=== PATIENT | male | born 1960 | race Caucasian/White ===

== ENCOUNTER 2021-07-06 18:58 | Inpatient (IN) | payer MEDICARE, OTHER ==
[~2021-07-06] VITALS: Ht 187.9 cm; Wt 91.5 kg
[2021-07-06 20:50] VITALS: BP 87/61
[2021-07-06] MEDS ORDERED: ONDANSETRON 4 MG (ZOFRAN) ORAL DISSOLVE TAB PO PRN (21:30)
[2021-07-06] MEDS ORDERED: diphenhydrAMINE 25 MG TAB (BENADRYL) PO PRN (21:30)
[2021-07-06] MEDS ORDERED: MELATONIN 3 MG TABLET PO PRN (21:30)
[2021-07-06] MEDS ORDERED: ONDANSETRON 4 MG/2 ML (SDV) Z0FRAN IV PRN (21:30)
[2021-07-06] MEDS ORDERED: ANTACID SUSP 30 ML UDC (MYLANTA) PO PRN (21:30)
[2021-07-06] MEDS ORDERED: morphine INJ 4 MG/ML 1 ML (VIAL/SYRINGE) IVP PRN (21:30)
[2021-07-06] MEDS ORDERED: ACETAMINOPHEN 325 MG TABLET PO PRN (21:30)
[2021-07-06] MEDS ORDERED: NS IV 1000 ML 1,000 ML ONE (21:41)
[2021-07-06] MEDS: NS IV 1000 ML 1,000 ML IV SCH (22:22)
--- NOTE | 2021-07-06 22:59 | Diagnostic Imaging Report ---
INDICATION: NG tube placement. FINDINGS: The catheter is along the greater curvature of the proximal gastric body. There is some air distention of the colon in the left upper quadrant. IMPRESSION: The OG catheter is in good position within the stomach. Dictated by: Dictated on workstation # [id number]
[2021-07-06 23:27] VITALS: BP 121/82
[2021-07-07 03:20] VITALS: BP 141/88
[2021-07-07 06:08] LABS: BASOPHILS % (AUTO) 0 % (0-10); EOSINOPHILS % (AUTO) 0 % (0-10); HEMATOCRIT 41 % (40-54); HEMOGLOBIN 13.7 g/dL (13.3-17.7); LYMPHOCYTES # (AUTO) 1.4 10^3/uL (1.0-4.0); LYMPHOCYTES % (AUTO) 14 % (12-44); MEAN CORPUSCULAR HEMOGLOBIN 30 pg (25-34); MEAN CORPUSCULAR HGB CONC 33 g/dL (32-36); MEAN CORPUSCULAR VOLUME 90 fL (80-99); MONOCYTES # (AUTO) 0.7 10^3/uL (0.0-1.0); MONOCYTES % (AUTO) 7 % (0-12); NEUTROPHILS # (AUTO) 7.9 10^3/uL (1.8-7.8); NEUTROPHILS % (AUTO) 78 % (42-75); PLATELET COUNT 391 10^3/uL (130-400); WHITE BLOOD COUNT 10.2 10^3/uL (4.3-11.0)
[2021-07-07] MEDS: NS IV 1000 ML 1,000 ML IV SCH ×3 (06:21→21:02)
[2021-07-07 06:22] LABS: POTASSIUM 3.8 MMOL/L (3.6-5.0)
[2021-07-07 06:23] LABS: CALCIUM 8.5 MG/DL (8.5-10.1)
[2021-07-07 06:27] LABS: CREATININE SERUM 0.69 MG/DL (0.60-1.30); PHOSPHORUS 2.9 MG/DL (2.3-4.7)
[2021-07-07 06:29] LABS: MAGNESIUM 2.1 MG/DL (1.6-2.4)
[2021-07-07 07:45] VITALS: BP 126/69
[2021-07-07] MEDS: MAGNESIUM 1 GM/100 ML IVPB 100 ML IV SCH (08:10)
[2021-07-07] MEDS: POTASSIUM CL 10MEQ/50ML IVPB 50 ML IV SCH (08:10)
[2021-07-07] MEDS: KCL 20 MEQ TAB (K-DUR) PO SCH (08:10)
[2021-07-07] MEDS: ENOXAPARIN 40 MG/0.4 ML (LOVENOX) SYR SC SCH (09:52)
[2021-07-07 11:50] VITALS: BP 130/85
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
--- NOTE | 2021-07-07 13:31 | History & Physical-Hospitalist ---
RENELUCÍAMAXI A MED STUDENT 07/07/21 1331: History of Present Illness HPI/Chief Complaint Pt was admitted from [facility] yesterday for bloating, reflux and constipation for the last three days. Pt has hx of quadriplegia and pressure ulcers. Pt reports he started having bloating and reflux three days and has not had a BM since Friday. Pt reports he normally has a BM every other day. Pt states he has had a pressure ulcer and has been lying in bed for the last week instead of being up in his wheelchair. Pt reports his abdominal pain is in the LLQ and wo rsens when he lies on his right side and is better when he is on his back. The pain is sharp and constant. Pt lives at home with his parents who are his caregivers. Pt denies fever, chills, recent weight loss or gain, SOA, cough, chest pain, palpitations and N/V/D. Pt has suprapubic catheter in place. Source: patient Exam Limitations: no limitations Date Seen 07/07/21 Time Seen by a Provider: 08:50 Attending Physician Alana Reynolds MD PCP Referring Physician Date of Admission Jul 06, 2021 at 20:40 Home Medications & Allergies Home Medications Reviewed patient Home Medication Reconciliation performed by pharmacy medication reconciliations phlebotomy technician and/or nursing. Patients Allergies have been reviewed. Allergies Allergies Coded Allergies Sulfa (Sulfonamide Antibiotics) (Verified Allergy, Unknown, 07/07/21) povidone-iodine (Verified Allergy, Unknown, 07/07/21) Past Iryqbix-Bdslyk-Rkyeex Hx Patient Social History Tobacco Use?: No Smoking Status: Never a Smoker Use of E-Cig and/or Vaping dev: No Substance use?: No Alcohol Use?: No Pt feels they are or have been: No Immunizations Up To Date Tetanus Booster (TDap): Unknown Current Status Advance Directives: No Advance Directive Location: Unable to obtain copy Communicates: Verbally Primary Language: Niuean Preferred Spoken Language: Niuean Is interpretation needed?: No Sensory deficits: Other Additional sensory deficits: quadriplegic Review of Systems Constitutional: No chills, No fever EENTM: no symptoms reported Respiratory: No cough, No short of breath Cardiovascular: No chest pain, No palpitations Gastrointestinal: abdominal pain (LLQ), constipation; No diarrhea, No nausea, No vomiting Genitourinary: other (suprapubic catheter) Musculoskeletal: no symptoms reported Skin: no symptoms reported Psychiatric/Neurological: No Symptoms Reported Physical Exam Physical Exam Vital Signs Vital Signs - First Documented 07/06/21 20:50 Temp 36.3 Pulse 82 Resp 16 B/P (MAP) 87/61 (70) Pulse Ox 96 O2 Delivery Room Air Capillary Refill : Height, Weight, BMI Height: '" Weight: lbs. oz. kg; 25.91 BMI Method: General Appearance: No Apparent Distress, WD/WN HEENT: PERRL/EOMI Respiratory: Chest Non Tender, Lungs Clear, Normal Breath Sounds Cardiovascular: Regular Rate, Rhythm, No Murmur Gastrointestinal: Soft, Other (Pressure in LLQ) Extremity: Normal Capillary Refill, No Pedal Edema Neurologic/Psychiatric: Alert, Oriented x3, Depressed Affect Skin: Normal Color, Warm/Dry Results Results/Procedures Labs Laboratory Tests 07/07/21 05:25 Patient resulted labs reviewed. Assessment/Plan Admission Diagnosis Small bowel obstruction Reason for Inpatient Admission: Small bowel obstruction Assessment and Plan SBO Hyponatremia Quadriplegia SBO -NPO, NG tube for decompression, IV fluids and pain medication prn -Surgery consulted Hyponatremia -NaCl at 125mls/hr Quadriplegia with pressure ulcer -Will consult wound care -Frequent turns as tolerated by patient Diet: NPO DVT prophylaxis: Lovenox Disposition: Likely to stay another 24-48 hours to monitor for bowel movement. ALANA REYNOLDS MD 07/07/21 1936: History of Present Illness Time Seen by a Provider: 12:20 Past Kbkdinu-Ltlyfq-Jtgvnv Hx Past Medical History Spinal Cord Injury Family Medical History No Pertinent Family Hx Physical Exam Physical Exam General Appearance: No Apparent Distress, WD/WN HEENT: PERRL/EOMI, Pharynx Normal Neck: Normal Inspection, Supple Respiratory: Lungs Clear, Normal Breath Sounds, No Respiratory Distress Cardiovascular: Regular Rate, Rhythm, No Murmur Gastrointestinal: Soft, Abnormal Bowel Sounds (high pitched tinkling bowel sounds) Extremity: Normal Inspection, No Pedal Edema Neurologic/Psychiatric: Alert, Oriented x3, Normal Mood/Affect Skin: Normal Color, Warm/Dry Results Results/Procedures Imaging: Reviewed Imaging Report Assessment/Plan Admission Diagnosis Admission Status: Inpatient Order (span 2 midnights) Reason for Inpatient Admission: Treatment of small bowel obstruction Assessment and Plan Admitted with small bowel obstruction. Surgery following. NG tube in place, IV fluids, pain regimen, NPO. Monitor closely. Diagnosis/Problems Diagnosis/Problems (1) Small bowel obstruction Status: Acute Supervisory-Addendum Brief Verification & Attestation Participated in pt care: history, MDM, physical Personally performed: exam, history, MDM, supervision of care Care discussed with: Medical Student Procedures: n/a Results interpretation: Verified all documentation A medical student performed and documented this service in my presence. I reviewed and verified all information documented by the medical student and made modifications to such information, when appropriate. I personally performed the physical exam and medical decision making. MAXI NOVAK MED STUDENT Jul 07, 2021 13:31 ALANA REYNOLDS MD Jul 07, 2021 19:36
[2021-07-07] MEDS ORDERED: BISACODYL 10 MG SUPP (DULCOLAX) PR ONE (13:45)
[2021-07-07 16:00] VITALS: BP 129/70
[2021-07-07] MEDS ORDERED: OXYB5TAB13 PO (18:04)
[2021-07-07] MEDS ORDERED: BACL10TA PO (18:04)
[2021-07-07] MEDS ORDERED: DIAZ10TA3 PO (18:04)
[2021-07-07 20:00] VITALS: BP 125/85
[2021-07-07] MEDS: LORazepam INJ 2 MG/ML (ATIVAN) VIAL IVP SCH (21:07)
[2021-07-08] VITALS (7 sets, daily range): BP systolic 127–185; BP diastolic 76–103
[2021-07-08] MEDS: NS IV 1000 ML 1,000 ML IV SCH ×3 (05:02→21:22)
[2021-07-08 06:52] LABS: BASOPHILS % (AUTO) 1 % (0-10); EOSINOPHILS # (AUTO) 0.1 10^3/uL (0.0-0.3); EOSINOPHILS % (AUTO) 1 % (0-10); HEMATOCRIT 40 % (40-54); HEMOGLOBIN 12.8 g/dL (13.3-17.7); LYMPHOCYTES # (AUTO) 1.2 10^3/uL (1.0-4.0); LYMPHOCYTES % (AUTO) 15 % (12-44); MEAN CORPUSCULAR HEMOGLOBIN 29 pg (25-34); MEAN CORPUSCULAR HGB CONC 32 g/dL (32-36); MEAN CORPUSCULAR VOLUME 91 fL (80-99); MEAN PLATELET VOLUME 9.7 fL (9.0-12.2); MONOCYTES # (AUTO) 0.8 10^3/uL (0.0-1.0); MONOCYTES % (AUTO) 10 % (0-12); NEUTROPHILS % (AUTO) 73 % (42-75); PLATELET COUNT 450 10^3/uL (130-400); WHITE BLOOD COUNT 8.2 10^3/uL (4.3-11.0)
[2021-07-08 07:08] LABS: POTASSIUM 3.5 MMOL/L (3.6-5.0)
[2021-07-08 07:09] LABS: CALCIUM 8.3 MG/DL (8.5-10.1)
[2021-07-08 07:13] LABS: CREATININE SERUM 0.73 MG/DL (0.60-1.30); PHOSPHORUS 2.2 MG/DL (2.3-4.7)
[2021-07-08] MEDS: KCL 20 MEQ TAB (K-DUR) PO SCH (07:15)
[2021-07-08] MEDS: POTASSIUM CL 10MEQ/50ML IVPB 50 ML IV SCH ×3 (07:15→11:50)
[2021-07-08 07:16] LABS: MAGNESIUM 2.2 MG/DL (1.6-2.4)
[2021-07-08] MEDS: MAGNESIUM 1 GM/100 ML IVPB 100 ML IV SCH (07:16)
[2021-07-08] MEDS ORDERED: hydrALAZINE (APESOLINE) 20 MG/ML VIAL IV PRN (08:45)
[2021-07-08] MEDS ORDERED: BISACODYL 10 MG SUPP (DULCOLAX) PR SCH (09:00)
--- NOTE | 2021-07-08 09:06 | Progress Note ---
Subjective Date Seen by a Provider: Jul 08, 2021 Time Seen by a Provider: 10:30 Subjective/Events-last exam Patient seen with Dr. Shields. Patient reports just had a BM. Denies any abdominal pain, no N/V. Objective Exam Vital Signs Date Time Temp Pulse Resp B/P (MAP) Pulse Ox O2 Delivery O2 Flow Rate FiO2 07/08/21 07:40 36.8 104 18 180/103 (128) 97 Room Air 07/08/21 03:50 36.2 86 17 134/83 (100) 95 Room Air 07/08/21 00:00 36.6 84 17 136/80 (98) 97 Room Air 07/07/21 20:22 Room Air 07/07/21 20:00 35.9 94 20 125/85 (98) 97 Room Air 07/07/21 16:00 36.1 104 20 129/70 (89) 97 Room Air 07/07/21 11:50 36.6 86 18 130/85 (100) 96 Room Air I & O 07/08/21 06:59 Intake Total 0 ml Output Total 2600 ml Balance -2600 ml Capillary Refill : General Appearance: No Apparent Distress, WD/WN Neck: Supple Respiratory: No Accessory Muscle Use, No Respiratory Distress Cardiovascular: Regular Rate, Rhythm, No Edema Gastrointestinal: normal bowel sounds, non tender, soft Extremity: Normal Capillary Refill, No Pedal Edema Neurologic/Psychiatric: Alert, Oriented x3 Skin: Normal Color, Warm/Dry Results Lab Laboratory Tests 07/08/21 05:48: White Blood Count 8.2, Red Blood Count 4.41, Hemoglobin 12.8L, Hematocrit 40, Mean Corpuscular Volume 91, Mean Corpuscular Hemoglobin 29, Mean Corpuscular Hemoglobin Concent 32, Red Cell Distribution Width 13.2, Platelet Count 450H, Mean Platelet Volume 9.7, Immature Granulocyte % (Auto) 0, Neutrophils (%) (Auto) 73, Lymphocytes (%) (Auto) 15, Monocytes (%) (Auto) 10, Eosinophils (%) (Auto) 1, Basophils (%) (Auto) 1, Neutrophils # (Auto) 6.0, Lymphocytes # (Auto) 1.2, Monocytes # (Auto) 0.8, Eosinophils # (Auto) 0.1, Basophils # (Auto) 0.0, Immature Granulocyte # (Auto) 0.0, Sodium Level 138, Potassium Level 3.5L, Chloride Level 103, Carbon Dioxide Level 19L, Anion Gap 16H, Blood Urea Nitrogen 14, Creatinine 0.73, Estimat Glomerular Filtration Rate 104, BUN/Creatinine Ratio 19, Glucose Level 87, Calcium Level 8.3L, Phosphorus Level 2.2L, Magnesium Level 2.2 Assessment/Plan Assessment/Plan Assess & Plan/Chief Complaint A 61-year-old male, who is a quadriplegic with small bowel obstruction versus ileus and colonic pseudo-obstruction due to his recent immobility. VSS Clamp NGT Start clear liquid diet If tolerates diet after a few hours then may DC NGT Will advance diet as tolerated KIRILL MARES APRN Jul 08, 2021 09:06
[2021-07-08] MEDS: ENOXAPARIN 40 MG/0.4 ML (LOVENOX) SYR SC SCH (09:36)
[2021-07-08] MEDS: LORazepam INJ 2 MG/ML (ATIVAN) VIAL IVP SCH ×2 (09:49→12:54)
--- NOTE | 2021-07-08 11:33 | Diagnostic Imaging Report ---
INDICATION: Abdominal distention Abdominal film obtained at 10:14 a.m. and compared with 07/06/2021. NG tube is seen with tip overlying the mid stomach. Bowel gas pattern is nonspecific. There is prominent gaseous distention of the transverse colon, similar to the prior study. There is increasing small bowel distention in the right lower quadrant. There is calcification over the right upper quadrant which may be a gallstone. IMPRESSION: NG tube tip overlies the mid stomach. Gaseous distention of transverse colon again noted with increasing distention of small bowel loops in the right lower quadrant, findings may represent ileus or early obstruction. Consider CT for further evaluation. There is a calcification over the right upper quadrant which is likely a gallstone. Dictated by: Dictated on workstation # [id number]
--- NOTE | 2021-07-08 13:46 | Progress Note - Hospitalist ---
MAXI NOVAK A MED STUDENT 07/08/21 1346: Subjective HPI/CC On Admission Date Seen by Provider: Jul 08, 2021 Time Seen by Provider: 09:15 Small bowel obstruction Subjective/Events-last exam Pt reports he is feeling well today. He had a BM that was semi solid this morning. Denies fever, chills, chest pain, SOA, cough, N/V. Review of Systems General: No Chills, No Fatigue HEENT: No Head Aches, No Visual Changes Pulmonary: No Dyspnea, No Cough Cardiovascular: No: Chest Pain, Palpitations Gastrointestinal: No: Nausea, Vomiting, Abdominal Pain Genitourinary: No Dysuria, No Frequency Neurological: No: Weakness, Numbness Objective Exam Vital Signs Vital Signs Date Time Temp Pulse Resp B/P (MAP) Pulse Ox O2 Delivery O2 Flow Rate FiO2 07/08/21 11:20 37.2 78 22 136/81 (99) 98 Room Air Capillary Refill : General Appearance: No Apparent Distress, WD/WN HEENT: PERRL/EOMI Respiratory: Chest Non Tender, Lungs Clear, Normal Breath Sounds, No Accessory Muscle Use, No Respiratory Distress Cardiovascular: No Murmur, Tachycardia Gastrointestinal: Non Tender, Soft, Abnormal Bowel Sounds (Hyperactive bowel sounds) Extremity: No Pedal Edema Neurologic/Psychiatric: Alert, Oriented x3, Normal Mood/Affect Skin: Normal Color, Warm/Dry Results/Procedures Lab Laboratory Tests 07/08/21 05:48 Patient resulted labs reviewed. Imaging: Reviewed Imaging Report Assessment/Plan Assessment and Plan Assess & Plan/Chief Complaint SBO Hyponatremia Quadriplegia SBO -Clear liquid diet, NG tube clamped -If tolerated, will remove NG tube -IV fluids and pain meds -Surgery consulted Hyponatremia -Resolved Quadriplegia with pressure ulcer -Will consult wound care -Frequent turns as tolerated by patient Diet: Clear liquid DVT prophylaxis: Lovenox Disposition: Likely to d/c tomorrow if clear liquid diet tolerated and NG tube can be removed ALANA REYNOLDS MD 07/08/212008: Subjective HPI/CC On Admission Time Seen by Provider: 12:00 Assessment/Plan Assessment and Plan Assess & Plan/Chief Complaint Bowel function improving. Advancing diet. Continue to monitor. Diagnosis/Problems Diagnosis/Problems (1) Small bowel obstruction Status: Acute Supervisory-Addendum Brief Verification & Attestation Participated in pt care: history, MDM, physical Personally performed: exam, history, MDM, supervision of care Care discussed with: Medical Student Procedures: n/a Results interpretation: Verified all documentation A medical student performed and documented this service in my presence. I reviewed and verified all information documented by the medical student and made modifications to such information, when appropriate. I personally performed the physical exam and medical decision making. MAXI NOVAK MED STUDENT Jul 08, 2021 13:46 ALANA REYNOLDS MD Jul 08, 2021 20:09
[2021-07-08] MEDS: DIAZEPAM 5 MG (VALIUM) TABLET PO SCH ×2 (16:57→20:36)
[2021-07-08] MEDS ORDERED: PSEUDOEPHEDRINE HCL 30 MG (SUDAFED) TAB PO ONE (19:30)
[2021-07-08] MEDS: DOCUSATE SODIUM 10 MG/ML 10 ML UDC (COLACE) PO SCH (20:36)
[2021-07-08] MEDS: BACLOFEN 10 MG (LIORESAL) TAB PO SCH (20:36)
[2021-07-08] MEDS: OXYBUTYNIN (DITROPAN) 5 MG TAB PO SCH (20:36)
[2021-07-09 00:17] VITALS: BP 129/83
[2021-07-09 04:39] VITALS: BP 145/88
[2021-07-09] MEDS: NS IV 1000 ML 1,000 ML IV SCH ×2 (05:18→14:07)
[2021-07-09 06:34] LABS: BASOPHILS # (AUTO) 0.1 10^3/uL (0.0-0.1); BASOPHILS % (AUTO) 1 % (0-10); EOSINOPHILS # (AUTO) 0.2 10^3/uL (0.0-0.3); EOSINOPHILS % (AUTO) 3 % (0-10); HEMATOCRIT 35 % (40-54); HEMOGLOBIN 11.3 g/dL (13.3-17.7); LYMPHOCYTES # (AUTO) 1.7 10^3/uL (1.0-4.0); LYMPHOCYTES % (AUTO) 26 % (12-44); MEAN CORPUSCULAR HEMOGLOBIN 30 pg (25-34); MEAN CORPUSCULAR HGB CONC 32 g/dL (32-36); MEAN CORPUSCULAR VOLUME 93 fL (80-99); MEAN PLATELET VOLUME 9.8 fL (9.0-12.2); MONOCYTES # (AUTO) 0.6 10^3/uL (0.0-1.0); MONOCYTES % (AUTO) 10 % (0-12); NEUTROPHILS # (AUTO) 3.9 10^3/uL (1.8-7.8); NEUTROPHILS % (AUTO) 61 % (42-75); PLATELET COUNT 346 10^3/uL (130-400); WHITE BLOOD COUNT 6.4 10^3/uL (4.3-11.0)
[2021-07-09 06:56] LABS: CALCIUM 7.8 MG/DL (8.5-10.1); CREATININE SERUM 0.64 MG/DL (0.60-1.30); MAGNESIUM 1.8 MG/DL (1.6-2.4); PHOSPHORUS 1.8 MG/DL (2.3-4.7); POTASSIUM 3.4 MMOL/L (3.6-5.0)
[2021-07-09] MEDS: MAGNESIUM 1 GM/100 ML IVPB 100 ML IV SCH (07:01)
[2021-07-09] MEDS: POTASSIUM CL 10MEQ/50ML IVPB 50 ML IV SCH ×3 (07:02→08:39)
[2021-07-09] MEDS: KCL 20 MEQ TAB (K-DUR) PO SCH (07:02)
[2021-07-09] MEDS: DOCUSATE SODIUM 10 MG/ML 10 ML UDC (COLACE) PO SCH (07:52)
[2021-07-09 08:00] VITALS: BP 160/98
[2021-07-09] MEDS ORDERED: OXYB5TAB13 PO (08:13)
[2021-07-09] MEDS ORDERED: DOCU100T7 PO (08:15)
[2021-07-09] MEDS ORDERED: POT PHOS/NA PHOS (K-PHOS NEUTRAL) PO ONE (08:15)
[2021-07-09] MEDS ORDERED: ASCO-262 PO (08:17)
[2021-07-09] MEDS ORDERED: ZINC220T3 PO (08:19)
[2021-07-09] MEDS ORDERED: IBUP-2473 PO (08:20)
[2021-07-09] MEDS ORDERED: PSYL1PAC10 PO (08:20)
[2021-07-09] MEDS ORDERED: POTASSIUM CL 10MEQ/50ML IVPB 50 ML IV ONE (08:35)
[2021-07-09] MEDS: ENOXAPARIN 40 MG/0.4 ML (LOVENOX) SYR SC SCH (08:39)
[2021-07-09] MEDS: BACLOFEN 10 MG (LIORESAL) TAB PO SCH ×2 (08:39→13:17)
[2021-07-09] MEDS: DIAZEPAM 5 MG (VALIUM) TABLET PO SCH ×2 (08:39→13:17)
[2021-07-09] MEDS: OXYBUTYNIN (DITROPAN) 5 MG TAB PO SCH ×2 (08:40→13:17)
[2021-07-09] MEDS ORDERED: BISACODYL 10 MG SUPP (DULCOLAX) PR SCH (09:00)
[2021-07-09 12:00] VITALS: BP 144/99
[2021-07-09] MEDS ORDERED: COLLAGENASE 30 GM (SANTYL) TUBE TP SCH (14:00)
== END 2021-07-09 14:51 | disposition home or self-care (01) | DRG 388 ==
LOC: 4TH 20:40
PROVIDERS: ADMIT Internal Medicine; ATTEND Internal Medicine
PROC: 0D9670Z Drainage of Stomach with Drainage Device, Via Natural or Artificial Opening (ICD-10-PCS; principal; 2021-07-07)
DX: K56.609 Unspecified intestinal obstruction, unspecified as to partial versus complete obstruction (principal); G82.50 Quadriplegia, unspecified; E87.1 Hypo-osmolality and hyponatremia; L89.311 Pressure ulcer of right buttock, stage 1; S14.109S Unspecified injury at unspecified level of cervical spinal cord, sequela; V89.2XXS Person injured in unspecified motor-vehicle accident, traffic, sequela
CPT/HCPCS: 36415; 74018; 80048; 83735; 84100; 85025